=== PATIENT | female | born 1990 | race African-American/Black ===

== ENCOUNTER 2022-09-26 12:39 | Emergency (ER) | payer OTHER ==
[~2022-09-26] VITALS: Ht 170.2 cm; Wt 68.2 kg
[2022-09-26] MEDS ORDERED: METHOCARBAMOL 500 MG TABLET PO ONE (14:45)
[2022-09-26] MEDS ORDERED: KETOROLAC TROMETHAMINE 60 MG/2 ML VIAL IM ONE (14:45)
[2022-09-26] MEDS ORDERED: CYCL-448 PO (16:57)
[2022-09-26] MEDS ORDERED: GABA-1181 PO (16:57)
[2022-09-26] MEDS ORDERED: NAPR-1025 PO (16:57)
[2022-09-26 17:00] VITALS: BP 123/85
== END 2022-09-26 17:08 | disposition home or self-care (01) ==
LOC: EMS 13:16
DX: S46.912A Strain of unspecified muscle, fascia and tendon at shoulder and upper arm level, left arm, initial encounter (principal); S46.911A Strain of unspecified muscle, fascia and tendon at shoulder and upper arm level, right arm, initial encounter; S20.219A Contusion of unspecified front wall of thorax, initial encounter; R07.9 Chest pain, unspecified; R05.9 Cough, unspecified; G44.209 Tension-type headache, unspecified, not intractable; V49.9XXA Car occupant (driver) (passenger) injured in unspecified traffic accident, initial encounter; Y93.89 Activity, other specified; Y92.89 Other specified places as the place of occurrence of the external cause; Y99.8 Other external cause status
CPT/HCPCS: 99284; 70450; 71045; 72125; 96372; J1885